=== PATIENT | female | born 1955 | race African-American/Black ===

== ENCOUNTER 2022-02-11 23:03 | Emergency (ER) | payer OTHER ==
[~2022-02-11] VITALS: Ht 149.9 cm; Wt 65.8 kg
[2022-02-12 01:50] VITALS: BP 164/60; TEMP 99.4
== END 2022-02-12 01:50 | disposition home or self-care (01) ==
LOC: ED 23:03
PROC: 2W3RX1Z Immobilization of Left Lower Leg using Splint (ICD-10-PCS; principal; 2022-02-11)
DX: S82.892A Other fracture of left lower leg, initial encounter for closed fracture (principal); Z48.01 Encounter for change or removal of surgical wound dressing; X58.XXXA Exposure to other specified factors, initial encounter; Y92.89 Other specified places as the place of occurrence of the external cause
CPT/HCPCS: 99283

== ENCOUNTER 2023-03-21 12:06 | Outpatient (CLI) | payer OTHER ==
[2023-03-21 12:36] LABS: PLATELET COUNT 204 K/uL (152-353)
[2023-03-21 13:15] LABS: POTASSIUM 4.7 mmol/L (3.6-5.2)
== END 2023-03-21 19:17 | disposition home or self-care (01) ==
LOC: RAD 12:06
PROVIDERS: ATTEND Family Medicine
DX: E11.65 Type 2 diabetes mellitus with hyperglycemia (principal); I10 Essential (primary) hypertension; E78.49 Other hyperlipidemia; E55.9 Vitamin D deficiency, unspecified
CPT/HCPCS: 36415; 80053; 80061; 81000; 82306; 83036; 84439; 84443; 84550; 85027; 85652